=== PATIENT | male | born 1990 | race Caucasian/White ===

== ENCOUNTER 2022-03-29 10:23 | Emergency (ER) | payer BC, SELFPAY ==
[2022-03-29 10:35] VITALS: BP 133/93; PULSE 67; RESP 16; TEMP 36.4; O2SAT 99
--- NOTE | 2022-03-29 10:36 | ED.SKABFB ---
HPI - Skin/Abscess/Foreign Bdy General Chief complaint: Extremity Problem,Nontraumatic Stated complaint: Injury on foot near toes Time Seen by Provider: 03/29/22 10:36 Source: patient Mode of arrival: ambulatory Limitations: no limitations History of Present Illness HPI narrative: 31 y/o male presented for c/o right foot pain since last night. States pain started after playing golf but denies injury. He applied ice this morning and states swelling is improved. Pain only with ambulating. Rates 5/10. Denies numbness, tingling or weakness to the foot. Endorses history of plantar fasciitis which he treats with ice and NSAIDs. Related Data Allergies Allergy/AdvReac Type Severity Reaction Status Date / Time No Known Allergies Allergy Verified 03/29/22 10:48 Review of Systems Review of Systems: CONSTITUTIONAL: Denies body aches, fever, chills CARDIOVASCULAR: Denies chest pain, palpitations, or edema. RESPIRATORY: Denies cough or dyspnea. SKIN: Denies rash, itching, or wounds. MUSCULOSKELETAL: Denies back pain, joint pain, or myalgia. NEUROLOGIC: Denies headache, numbness, tingling, or weakness. All systems reviewed & are unremarkable except as noted in HPI and below PMFSH Comments At time of signature, I have reviewed and agree with nursing past medical, surgical, social and family history unless otherwise noted. Please see nursing chart for further information. There is no relevant family history pertinent to the presenting complaint Exam Narrative: GENERAL: Well-appearing, well-nourished, and in no acute distress. CHEST: Speaks in full sentences. No respiratory distress. HEART: Regular rate and rhythm. Normal and equal peripheral pulses. EXTREMITIES: Right foot plantar surface mildly TTP at the 3rd distal metatarsal; no swelling, bruising or foreign body noted. Foot has normal strength and sensation, normal range of motion. No open wounds or obvious deformity; alignment normal, pulse palpable and equal bilaterally, skin warm, dry, pink. Capillary refill less than 3 seconds. SKIN: Warm, dry, no rash. NEURO: Alert and oriented x3. Course Course Emergency Course: Patient is aware of diagnosis, understands and agrees to treatment plan. Anticipatory guidance given. Patient agrees to follow-up as directed and is aware of reasons to seek care at the emergency department. Portions of this record may have been created with voice recognition software Level of Care: Express Care Visit Vital Signs Vital signs: Vital Signs Temperature 97.6 F 03/29/22 10:35 Pulse Rate 67 03/29/22 10:35 Respiratory Rate 16 03/29/22 10:35 Blood Pressure 133/93 H 03/29/22 10:35 Pulse Oximetry 99 03/29/22 10:35 Oxygen Delivery Room Air 03/29/22 10:35 Temperature 97.6 F 03/29/22 10:35 Pulse Rate 67 03/29/22 10:35 Respiratory Rate 16 03/29/22 10:35 Blood Pressure 133/93 H 03/29/22 10:35 Pulse Oximetry 99 03/29/22 10:35 Oxygen Delivery Room Air 03/29/22 10:35 Reviewed MDM - Skin/Abscess/Foreign Bdy MDM Narrative Medical decision making narrative: Pt's PE does not indicate the need for imaging. He is advised RICE therapy and s/s to go to the ER. He is appropriate for outpt treatment and f/u. Differential Diagnosis Differential diagnosis: Likely other (foot strain, plantar fasciitis, foreign body, contusion) Discharge Plan Discharge Clinical Impression: Acute pain of right foot Patient Disposition: Home, Self-Care Condition: Stable Instructions: Antibiotic Form, Plantar Fasciitis (ED) Additional Instructions: Rest and elevate the right leg; bear weight as tolerated Avoid running, excessive walking, jumping or lifting. Apply ice 15-20 minute intervals several times a day Keep it wrapped with SHIKHA during the day Motrin 600mg -800mg every 8 hours, alternate with Tylenol 1000mg every 8 hours as needed Follow up with your primary care provider as needed in 1-2 weeks. Go to the ER for
== END 2022-03-29 10:55 | disposition home or self-care (01) ==
PROVIDERS: Emergency Provider Nurse Practitioner Family
DX: M79.671 Pain in right foot (principal)
CPT/HCPCS: 99202; G0463